=== PATIENT | male | born 1950 | race Caucasian/White ===

== ENCOUNTER 2019-06-10 15:50 | Inpatient (IN) | payer OTHER ==
[~2019-06-10] VITALS: Ht 172.7 cm; Wt 85.5 kg
--- NOTE | ~2019-06-10 | H ---
[facility] [place] [address] HISTORY AND PHYSICAL Name: JASON PEREZ Room #: 459-P ADM IN M.R.#: [id number] Admission: 06/10/19 Attend Phys: Susana Kraus MD Discharge: Date of : 54 Report #: [id number] THIS REPORT FOR: //name// CC: Guido Kraus DATE OF SERVICE: 06/10/2019 ADMISSION HISTORY AND PHYSICAL EXAMINATION PRIMARY CARE PHYSICIAN: Dr. Guido Rowan. EMERGENCY CONTACT: Mrs. Rosette Perez, . She is also a durable power of assistant county attorney for health in case the patient cannot make decision. CHIEF COMPLAINT: 1. Numbness and tingling of both lower extremities and now upper extremity, progressively worsening for last 2 weeks. 2. Shortness of breath, progressively worsening for last 3 days. 3. Loss of balance with both lower extremities, being extremely weak where the patient cannot get up yesterday and today. HISTORY OF PRESENT ILLNESS: The patient is a very pleasant 68-year-old gentleman with a history of 60+ pack year smoking as well as in remission for the last 16 years and also has daily cocktail use at bedtime. The patient has a very well controlled diabetes mellitus type 2 with A1c of 5.8 and the most recent labs and has peripheral neuropathy for several years and also chronic pancreatitis diagnosed in this hospital, which required ICU stay for 5 days. The patient informs me that he had been dealing with neuropathy and he has been on gabapentin; however, the neuropathy symptoms are not well controlled and therefore, he drinks a cocktail to bed, so he can sleep at night and the patient informs me that since he started having some intermittent nausea, which he thought was because of his pancreatitis flareup, but never had any emesis and nausea actually is only once every couple of days. The patient informs me that his peripheral neuropathy in feet progressed to the both lower extremities upwards and both hands started having numbness and tingling approximately 2 weeks ago and the patient informs me that this got so bad that he had to actually go and get a cane from the store about a week ago and he is unable to get up from the floor if he falls down. He has not had a fall, however, but his has been supporting him to be able to get up from the chair and to walk and to sustain balance. The patient has not had any associated fever, shaking chills or night sweats and has not had any fall or head trauma or back trauma in recent past. The patient informs me that he has had colonoscopy 4 years ago and he had 1 polyp and he was told to have repeat one in 5-7 years. The patient denies any focal weakness or focal numbness. It is basically bilaterally symmetrical both lower extremities and then started [address] [address] HISTORY AND PHYSICAL Name: JASON PEREZ Room #: 459-P ADM IN M.R.#: [id number] Admission: 06/10/19 Attend Phys: Susana Kraus MD Discharge: Date of : 54 Report #: [id number] with both upper extremities and then about 3 days ago, he started noticing dyspnea on exertion, which is a new phenomenon for him. He denies any associated chest pain, diaphoresis, palpitations. He also has not had any orthopnea, paroxysmal nocturnal dyspnea or leg edema. The dyspnea on exertion is only with walking; however, even though he has not been able to walk much, but any exertion makes him short of breath and for last 1 to 2 days, he had not been able to balance himself and he cannot get up and walk because of lack of balance. The patient denies any associated dysuria, hematuria, frequency or urgency of urination. He also denies any hematochezia and melena and denies any exposure to infection. The patient has had flu vaccine in February and shingles vaccine in March and has not had any problems after those vaccinations in February, March, April. These all symptoms started in past 2-3 weeks approximately. PAST MEDICAL HISTORY: Significant for: 1. Hypertension. 2. Diabetes mellitus type 2. 3. Hyperlipidemia. 4. Diarrhea associated with metformin. 5. Key's esophagus. 6. Peripheral neuropathy. 7. Chronic pancreatitis. 8. One colonic polyp 4 years ago, diagnosed, noncancerous. PAST SURGICAL HISTORY: The patient has had Dupuytren contracture surgery in the right hand as well as in the left hand and no other surgeries noted. FAMILY HISTORY: The patient's mother at the age of 65 with cirrhosis of liver and father at the age of 50 years with metastatic lung cancer to brain and he was a heavy smoker. CURRENT MEDICATIONS: 1. Metoprolol. 2. Metformin. 3. Cholestyramine for diarrhea associated with metformin. 4. Lipitor. 5. Gabapentin. 6. Pantoprazole. ALLERGIES: THE PATIENT IS ALLERGIC TO IBUPROFEN AND HE HAS NO OTHER DRUG ALLERGIES. SOCIAL HISTORY: He smoked 1.5-2 packs per day up until he was 52 years of age from the 22 years who has approximately 22-tlum-cyfv smoking history, but quit 16 years ago and alcohol consumption almost every night. He drinks a cocktail of flavored vodka as neuropathy symptoms are difficult to control and alcohol [address] [place] [address] HISTORY AND PHYSICAL Name: JASON PEREZ Room #: 459- ADM IN M.R.#: [id number] Admission: 06/10/19 Attend Phys: Susana Kraus MD Discharge: Date of : 54 Report #: [id number] helps him go to sleep as he informs me. Denies any alcohol withdrawal seizures, but he does drink every night. FAMILY HISTORY: Mother of cirrhosis of liver at 65 years and father at the age of 50 years with metastatic lung cancer. REVIEW OF SYSTEMS: Ten point review of system was done and was completely negative for fever, shaking chills, night sweats, nausea, vomiting, diarrhea. The patient did have intermittent nausea, but the last episode was 3 or 4 days ago and absolutely no emesis. The patient denies any dysuria, hematuria, frequency or urgency of urination. Denies any hematochezia, melena. Denies any focal weakness or denies any blurred vision or difficulty with any sore throat, sinus drainage. He does have chronic sinus issues, but has denied any exacerbation recently. The patient informs me that he has not had any vertigo or dizziness and denies any chest pain, palpitations, orthopnea and denies any fall or injury to the lower back or any part of the back or any head trauma. PHYSICAL EXAMINATION: VITAL SIGNS: The patient has a temperature of 36.9, heart rate 73, respirations 20, blood pressure 161/94, pulse oximeter 90%. When he initially presented at the time of examination, the patient has a heart rate of 86, respirations 16, blood pressure 145/89, pulse oximeter 94% on room air. GENERAL: Alert and oriented to time, place and person, very pleasant 68-year-old gentleman with mild anxiety and distress about his progressively worsening weakness, but no cardiopulmonary distress. HEENT: Normocephalic, atraumatic. Pupils equally round, reactive to light. Extraocular muscle movements are intact. Oropharynx is clear. Mucous membranes are moist. Tongue coated, but no thrush noted. No buccal mucosal lesions noted. NECK: Supple, no JVD, no lymphadenopathy, no thyromegaly. HEART: S1, S2, regular. No murmur, no S3, no S4. LUNGS: Clear to auscultation without any crackles or wheezes. ABDOMEN: Soft, nontender, nondistended, normal active bowel sounds. No spinal tenderness or CVA tenderness elicited. EXTREMITIES: No edema both lower extremities. NEUROLOGICAL: The patient has good hand mold clamper bilaterally symmetrical and is able to lift both lower extremities at hip against gravity; however, it was not tested against resistance for flexors of the hip or extensors. The patient has a nonfocal neurological exam and skin exam without any breakdown. The patient does have seborrheic dermatitis of the head and neck area, but no skin breakdown noted. LABS AND X-RAYS: The patient had a sed rate of 13. Magnesium is low at 1.3. Creatine kinase is 56. CRP is normal at 7.1. Lipase is normal at 60. TSH normal 2.620. Free T4 is normal at 1.0. The patient has no leukocytosis with WBC 8.0 and hemoglobin 16.2, hematocrit 47.5. The patient has macrocytosis with [facility] [address] [place] [address] HISTORY AND PHYSICAL Name: JASON PEREZ Room #: 459-P ADM IN M.R.#: [id number] Admission: 06/10/19 Attend Phys: Susana Kraus MD Discharge: Date of : 54 Report #: [id number] MCV of 103.5. The patient had RDW normal, platelet count normal at 214 and segmented neutrophils are mildly elevated at 72.6%. No bandemia noted. D-dimer is normal at 0.34. The chemistries indicate sodium 142, potassium low at 3.1, chloride 98, bicarbonate 27. Anion gap normal for our lab is 16, the patient has 17. BUN 9, creatinine 0.9. Estimated GFR 84, glucose is 165, calcium is 9.7, total bilirubin 0.7, AST is mildly elevated at 87, ALT 54, alkaline phosphatase 98. Troponin I less than 0.06. BNP 53. Total protein 8.2, albumin 3.9, so protein-albumin ratio is normal. Influenza A and B are negative. Urinalysis indicates trace ketones, but otherwise unremarkable with a specific gravity 1.025, mildly elevated. Electrocardiogram indicates a left anterior fascicular block and poor R-wave progression and probable LVH, but no previous EKG available for comparison. A CT scan of the head indicates no midline shift, no CT evidence of acute infarction, extensive right maxillary sinusitis noted, but otherwise it was unremarkable. Chest x-ray is unremarkable without any cardiomegaly and the lung shadows are clear. ASSESSMENT: 1. Progressively worsening bilateral lower and upper extremity weakness. 2. Frequent falls. 3. Vitamin B12 deficiency with the level 200 in 05/2018, which has been replaced now. 4. Peripheral neuropathy, progressively worsening. 5. Type 2 diabetes mellitus, very tightly controlled with A1c of 5.8. 6. Dyspnea on exertion for last 3 days. 7. Daily alcohol use. 8. Severe hypomagnesemia and hypokalemia. 9. Hypertension, reasonably well controlled; hyperlipidemia, well controlled. We will go ahead and the patient has brought his labs from the clinic and lipids and TSH and B12 and hemoglobin A1c all within normal limit and the patient is full code. DVT prophylaxis with heparin and GI prophylaxis with Pepcid. PLAN: 1. The patient will be continued on sliding scale insulin and we will give gentle IV fluid as the patient has had decreased p.o. intake and we will start a diabetic diet. Since the patient takes alcohol every day, we will go ahead and put CIWA protocol and physical therapy, occupational therapy consult has been entered. We will go ahead and consult Neurology and we will do peak flow assessment initial as well as monitoring q. shift. If there is any decline in peak flow, then we will transfer the patient to ICU. There is no sensory loss. It does not appear to be Guillain-Purdum polyneuropathy. However, the patient's weakness has progressed in last 2-3 weeks very rather rapidly and the patient has significant balance problems, so likely polyneuropathy is contributing to [facility] [address] [place] [address] HISTORY AND PHYSICAL Name: JASON PEREZ Room #: 459-P [facility] IN ..#: [id number] Admission: 06/10/19 Attend Phys: Susana Kraus MD Discharge: Date of : 54 Report #: [id number]. However, MRI of the brain will be able to tell us about cerebellar lesion. Discussed with the patient and his the plan of care. 2. For dyspnea on exertion, we will go ahead and get an echocardiogram. The patient is a high risk for any alcoholic cardiomyopathy as well as anything related to diabetes and hypertension, especially with the EKG being left anterior fascicular block. We will go ahead and check ejection fraction and troponin has been negative and the patient does not have any chest pain. We will go ahead and get echo and if echo is abnormal, then we will consult Cardiology. 3. For diabetes, we will hold metformin and cholestyramine, which is being given to the patient for diarrhea and we will use sliding scale insulin, low dose. 4. Plan of care was discussed with the patient in detail and we will use continuous pulse oximetry if the patient has any symptoms of dyspnea. 5. There could be likely underlying COPD, so we will go ahead and do DuoNeb breathing treatment with distant breath sounds. 6. For maxillary sinusitis with extensive disease in the right maxillary sinus, we will go ahead and give ceftriaxone empirically for next 3 days and then switch to cefuroxime or azithromycin and a plan of care was discussed with the patient in detail. By: 17 20 Susana Kraus MD /ritu
[2019-06-10 15:52] VITALS: BP 161/94
[2019-06-10 16:32] LABS: URINE BILIRUBIN NEGATIVE (Negative); URINE BLOOD NEGATIVE (Negative); URINE CLARITY CLEAR; URINE COLOR YELLOW; URINE GLUCOSE-RANDOM* NEGATIVE (Negative); URINE KETONES TRACE (Negative); URINE LEUKOCYTES-REFLEX NEGATIVE (Negative); URINE NITRITE-REFLEX NEGATIVE (Negative); URINE PROTEIN (DIPSTICK) NEGATIVE (Negative); URINE SPECIFIC GRAVITY 1.025 (1.005-1.035); URINE UROBILINOGEN 0.2 E.U./dl (0.2-1.0)
[2019-06-10 16:57] LABS: ABSOLUTE NEUTROPHILS 5.8 thou/uL (1.4-8.2); BASOPHILS 1.4 % (0.0-2.0); EOSINOPHILS 3.3 % (0.0-3.0); HEMATOCRIT 47.5 % (42.0-52.0); HEMOGLOBIN 16.2 gm/dL (14.0-18.0); LYMPHOCYTES 18.4 % (24.0-44.0); MCH 35.2 pg (26.0-34.0); MCHC 34.1 g/dL (28.0-37.0); MCV 103.4 fL (80.0-100.0); MONOCYTES 4.3 % (1.0-8.0); PLATELET COUNT 214 thou/uL (150-400); POLYS 72.6 % (36.0-66.0); RBC 4.59 mil/uL (4.50-6.00); RDW 12.7 % (10.5-14.5)
[2019-06-10 17:02] LABS: ANION GAP 17 mmol/L (7-16); BUN 9 mg/dL (7-18); CALCIUM 9.7 mg/dL (8.5-10.1); CHLORIDE 98 mmol/L (98-107); CO2 27 mmol/L (21-32); CREATININE 0.9 mg/dL (0.7-1.3); GLUCOSE 165 mg/dL (74-106); POTASSIUM 3.1 mmol/L (3.5-5.1); SODIUM 142 mmol/L (136-145)
[2019-06-10 17:15] LABS: ALBUMIN 3.9 g/dL (3.4-5.0); SGOT 87 U/L (15-37); SGPT 54 U/L (30-65); TOTAL BILIRUBIN 0.7 mg/dL (<0.1-1.0); TOTAL PROTEIN 8.2 g/dL (6.4-8.2); TROPONIN-I <0.06 ng/mL (<0.06)
[2019-06-10 17:19] LABS: MAGNESIUM 1.3 mg/dL (1.8-2.4)
[2019-06-10] MEDS ORDERED: METFORMIN HCL500 M3 PO (19:08)
[2019-06-10] MEDS ORDERED: TOPROL XL25 MG PO (19:08)
[2019-06-10] MEDS ORDERED: LIPITOR 10 MG10 M1 PO (19:09)
[2019-06-10] MEDS ORDERED: PANTOPRAZOLE SO20 MG PO (19:09)
[2019-06-10] MEDS ORDERED: VITAMIN B-121000 MC2 SUBLING (19:10)
[2019-06-10] MEDS ORDERED: QUESTRAN PACKET4 GM PO (19:10)
[2019-06-10] MEDS ORDERED: NEURONTIN100 MG PO (19:10)
[2019-06-10 19:53] VITALS: BP 146/95
[2019-06-10 20:05] VITALS: BP 146/95
[2019-06-10 20:17] LABS: MAGNESIUM 1.4 mg/dL (1.8-2.4); PHOSPHORUS 3.8 mg/dL (2.5-4.9)
[2019-06-10 20:34] VITALS: BP 153/97
[2019-06-10 20:35] VITALS: BP 153/97
[2019-06-10 21:18] LABS: FOLIC ACID 86.2 ng/mL (8.6-58.9)
--- NOTE | 2019-06-11 03:27 | NUR ---
ADMITTED FROM ER UNDER 'S CARE. AXOX4. VSS. BLOOD GLUCOSE MONITORING. ADMITTED WITH PROGERSSTIVE BLE WEAKNESS. CIWA AND NEUROLOGICAL CHECKS PER MD ORDER. PT CALM AMD COOERATIVE AND FOLLOWS DIRECTIONS VERY WELL. NO S/S ACUTE DISTRESS NOTED OR REPORTED AT THIS TIME. WILL CONT TO MONITOR FOR ANY CHANGES IN CONDITION.
[2019-06-11 04:45] VITALS: BP 151/85
[2019-06-11 08:02] VITALS: BP 132/84
--- NOTE | 2019-06-11 12:02 | 2DMMODE ---
[facility] [address] [place] [address] 2 D/M-MODE ECHOCARDIOGRAM Name: RICHARDSJASON Room #: 459-P ADM IN M.R.#: [id number] Admission: 06/10/19 Attend Phys: Susana Kraus, Discharge: Date of : 54 Report #: [id number] THIS REPORT FOR: //name// APPROVED REPORT Study performed: 06/11/2019 10:55:56 EXAM: Comprehensive 2D, Doppler, and color-flow Echocardiogram Patient Location: Echo lab Room #: [facility] Status: routine BSA: 1.97 HR: 82 bpm BP: 132/84 mmHg Rhythm: NSR Other Information Study Quality: Good Indications Diabetes Dyspnea 2D Dimensions IVSd: 9.66 (7-11mm) LVOT Diam: 22.38 (18-24mm) LVDd: 58.89 mm PWd: 10.94 (7-11mm) Ascending Ao: 28.07 (22-36mm) LVDs: 45.53 (25-40mm) Aortic Root: 29.13 mm IVC: 18.00 mm Volumes Left Atrial Volume (Systole) Single Plane 4CH: 52.18 mL Single Plane 2CH: 31.66 mL LA ESV Index: 24.00 mL/m2 Aortic Valve AoV Peak Homero.: 1.25 m/s AO Peak Gr.: 6.24 mmHg LVOT Max P.23 mmHg LVOT Max V: 1.03 m/s JUAN Vmax: 3.24 cm2 Mitral Valve E/A Ratio: 0.8 MV Decel. Time: 397.61 ms MV E Max Homero.: 0.48 m/s [facility] [address] [place] [address] 2 D/M-MODE ECHOCARDIOGRAM Name: JASON RICHARDS Room #: 459-P [facility].#: [id number] Admission: 06/10/19 Attend Phys: Susana Kraus, Discharge: Date of : 54 Report #: [id number] MV A Homero.: 0.64 m/s MV PHT: 115.31 ms IVRT: 129.18 ms Pulmonary Valve PV Peak Homero.: 1.25 m/s PV Peak Gr.: 6.21 mmHg Pulmonary Vein P Vein S: 0.57 m/s P Vein A: 0.24 m/s P Vein D: 0.52 m/s P Vein A Dur.: 110.7 msec P Vein S/D Ratio: 1.10 Left Ventricle Left ventricle is at the upper limits of normal. There is normal LV segmental wall motion. There is normal left ventricular wall thickness. Left ventricular systolic function is normal. The left ventricular ejection fraction is within the normal range. LVEF is 50-55%. Grade I - abnormal relaxation pattern. Right Ventricle The right ventricle is normal size. The right ventricular systolic function is normal. Atria The left atrium size is normal. The right atrium size is normal. Aortic Valve The aortic valve is normal in structure. No aortic regurgitation is present. There is no aortic valvular stenosis. Mitral Valve The mitral valve is normal in structure. There is no mitral valve regurgitation noted. No evidence of mitral valve stenosis. Tricuspid Valve The tricuspid valve is normal in structure. There is no tricuspid valve regurgitation noted. Pulmonic Valve The pulmonary valve is normal in structure. There is no pulmonic valvular regurgitation. Great Vessels The aortic root is normal in size. IVC is normal in size and collapses >50% with inspiration. [facility] [address] [place] [address] 2 D/M-MODE ECHOCARDIOGRAM Name: JASON RICHARDS Room #: 459[facility] IN .R.#: [id number] Admission: 06/10/19 Attend Phys: Susana Kraus, Discharge: Date of : 54 Report #: [id number] Pericardium There is no pericardial effusion. <Conclusion> Left ventricle is at the upper limits of normal. LVEF is 50-55%. The aortic valve is normal in structure. The mitral valve is normal in structure. The tricuspid valve is normal in structure. The pulmonary valve is normal in structure. There is no pericardial effusion. <ELECTRONICALLY SIGNED> By: Samir Ba MD 06/11/191201 01 01 Samir Ba MD /INF
--- NOTE | 2019-06-11 13:22 | NUR ---
PT ADMITTED RELATED TO BLE WEAKNESS. CM REVIEWED CHART AND SPOKE WITH CARE TEAM. CM MET WITH PT AT BEDSIDE THIS DAY. PT IS A&O X4. CM ROLE INTRODUCED. PT INDICATED HE LIVES IN A HOUSE WITH HIS SPOUSE WITH 5 STEPS TO ENTER AND ALL NEEDS ON 1 LEVEL UPON ENTRY. PT INDICATED HE HAD USED A CANE TO ASSIST WITH BALANCE BUT HAD BEEN INDEPDENDENT WT ADLS STERILIZER MACHINE OPERATOR. PT INDICATED NO HH OR OP HX. PT INDICATED HE HOPES TO BE ABLE TO RETURN HOME ONCE MEDICALLY STABLE. CM TO FOLLOW INDICATED WITH DC PLANNING.
--- NOTE | 2019-06-11 15:02 | EKG ---
[address] [address] ELECTROCARDIOGRAM REPORT Name: JASON RICHARDS Room #: 459-P ADM IN M.R.#: [id number] Admission: 06/10/19 Attend Phys: Susana Kraus MD Discharge: Date of : 54 Report #: [id number] THIS REPORT FOR: //name// [facility] ED Test Date: 2019-06-10 Test Time: 16:11:07 Pat Name: JASON RICHARDS Department: Room: 45 Gender: M Country Manager: RALF : 1950 Requested By: Peyton Borja Order Number: [id number] MD: Hung Lilly Measurements Intervals [place] Rate: 84 P: 27 VT: 162 QRS: -52 QRSD: 103 T: 43 QT: 380 QTc: 450 Interpretive Statements Sinus rhythm Left anterior fascicular block Abnormal R-wave progression, late transition Probable left ventricular hypertrophy No previous ECG available for comparison Electronically Signed On 06-11-2019 15:02:01 GARBAGE DEPOT WORKER by Hung Lilly [email or web address] <ELECTRONICALLY SIGNED> By: Hung Lilly MD 06/11/19 1502 161 161 Hung Lilly MD /EPI
[2019-06-11 16:06] LABS: APTT 27.5 Seconds (24.5-32.8); PROTIME 10.5 Seconds (9.3-11.4)
[2019-06-11 16:59] VITALS: BP 137/82
[2019-06-11 19:19] VITALS: BP 118/68
--- NOTE | 2019-06-11 19:39 | NUR ---
Assumed pt care this am, echo done this am. Pt is able to void with no issues, fall precautions in place pt is not stable on his feet. PT and OT came to work with the pt today. Tolerating diet and medications. Seen by Dr. Gautam, coodinated lumbar tap, to be scheduled as per radiology on Friday though Dr. Gautam wanted this done kiana. HEparin on hold 24 hours prior to lumbar tap on Friday. Updated med req from the list the of the pt has providec, informed Dr. Kraus. CIWA completed has been scoring a 2. POC followed no signs or verbalizations of distress have been noted. Endorsed tot he night nurse.
[2019-06-11 20:06] LABS: IgA 300 mg/dL (61-437); IgG 1051 mg/dL (700-1600); IgM 101 mg/dL (20-172)
[2019-06-12 03:41] VITALS: BP 133/74
[2019-06-12 06:09] LABS: CALCIUM 8.5 mg/dL (8.5-10.1); CREATININE 0.6 mg/dL (0.7-1.3); MAGNESIUM 1.8 mg/dL (1.8-2.4); PHOSPHORUS 3.7 mg/dL (2.5-4.9)
[2019-06-12 06:12] LABS: POTASSIUM 2.7 mmol/L (3.5-5.1)
--- NOTE | 2019-06-12 07:15 | NUR ---
ASSUMED CARE AROUND 191. AXOX4. FALL PRECAUTIONS IN PLACE. CRITICAL K+ THIS AM. ELECTROLYTE PROTOCOL PLCAED PER ALICIA MOSQUEDA SPRAY BOOTH OPERATOR FOR . NEXT DOSE AND SCHEDULED LAB DRAW ENDORSED TO RODOLFO WEBBER. NO S/S ACUTE DISTRESS NOTED OR REPORTED AT THIS TIME. CARE TRANSFERRED TO RODOLFO WEBBER AT THIS TIME.
[2019-06-12 08:00] VITALS: BP 160/85
[2019-06-12 15:00] VITALS: BP 134/94
[2019-06-12 20:12] VITALS: BP 135/76
--- NOTE | 2019-06-13 05:57 | NUR ---
Assessments completed. pt a&ox4. pt is a little forgetful. ambulates with 1 aassist with a walker to the bathroom. pt also uses the urinal. pt was flushed last night and this morning pt woke up with a facial rash. there was no other symptoms seen or reported by pt. rash is not itching. pt is only allergic to ibuprufen and it was not given. OVERHEAD CRANE TECHNICIAN Lani called and she ordered a 1x dose of benedryl 25mg which was administered. pt is getting Neb tx QID and he last recieved it at around 1900 per emar. no s/s of distress. will cont to monitor closely for any changes
[2019-06-13 08:16] LABS: URINE BILIRUBIN NEGATIVE (Negative); URINE BLOOD NEGATIVE (Negative); URINE CLARITY CLEAR; URINE COLOR YELLOW; URINE GLUCOSE-RANDOM* NEGATIVE (Negative); URINE KETONES NEGATIVE (Negative); URINE LEUKOCYTES NEGATIVE (Negative); URINE NITRITE NEGATIVE (Negative); URINE PROTEIN (DIPSTICK) NEGATIVE (Negative); URINE UROBILINOGEN 0.2 E.U./dl (0.2-1.0)
[2019-06-13 08:24] LABS: AMP/METHAMP Negative (Negative); BARBITURATES Negative (Negative); BENZODIAZEPINES Negative (Negative); COCAINE Negative (Negative); METHADONE Negative (Negative); OPIATES Negative (Negative); PCP Negative (Negative)
[2019-06-13 09:13] VITALS: BP 131/81
[2019-06-13 15:10] VITALS: BP 140/88
[2019-06-13 19:28] VITALS: BP 141/94
--- NOTE | 2019-06-13 19:29 | NUR ---
ASSUMED CARE AROUND 0715. AXOX4. CALLS APPROPRIATELY FOR ASSISTANCE. CONSTIPATION AND BP MEDS INQUIRED TO MD LUDMILA WILL REVIEW. DISCUSSED PLAN FOR LP AND US ABDOMEN IN AM. NO S/S ACUTE DISTRESS NOTED OR REPORTED AT THIS TIME. CARE TRANSFERRED TO INCOMING RN AT THIS TIME.
--- NOTE | 2019-06-14 01:30 | NUR ---
PT IS A/O X4 .PT CARE ASSUMED WITH PT IN BED WATCHING IT.PT IS UP WITH SBA TO THE BATHROOM USING A WALKER AND USES A URINAL AT NIGHT.PT IS ACHS ACCUCHECK.PT NPO FROM MIDNIGHT FOR LP AND ULTRASOUND.PT WILL NEED MED FOR ANXIETY BEFORE LUMBAR PUNCTURE.PT WILL ALSO NEED A BOWEL REGIMEN .WILL CONTINUE POC TILL EOS
[2019-06-14 09:01] VITALS: BP 137/88
[2019-06-14 12:09] LABS: ANA INTERPRETATION Negative (Negative)
[2019-06-14 13:22] VITALS: BP 137/88
[2019-06-14 13:53] LABS: CSF CLARITY CLEAR; CSF COLOR COLORLESS; CSF RBC 51 /mm3; CSF WBC 3 /mm3 (0-10); VOLUME 11 ml
[2019-06-14 14:24] LABS: CSF GLUCOSE 76 mg/dL (40-70); CSF PROTEIN 71 mg/dL (15-45)
--- NOTE | 2019-06-14 14:51 | NUR ---
PHYSICIAN INDICATED THAT PT IS MEDICALLY STABLE TO DC HOME WITH HOME HEALTH THIS DAY. PT NOTES FROM 06/12 HAD INDICATED PT WOULD BENEFIT FROM POST ACUTE CARE STAY. CM HAD ORDERED FWW THROUGH [facility] INDICATED PT HAD USED ONE. CM NET WITH PT AT BEDSIDE THIS DAY PT INDICATED THAT HE WAS VERY DISATISFIED WITH THE WAY HIS DISCHARGE WAS HANDLED. HE INIDCATED THAT HE DIDN'T KNOW THIS DR. ALMONTE AND THAT THIS ISN'T HOUSE DR. SMITH WOULD HAVE HANDLED ANYTHING. CM APPOLOGIZED BUT INDICATED THAT PHYSICIAN INDICATED THAT PT COULD GO SKILLED IF PT WAS CONCERNED ABOUT DCING HOME. CM INDICATED THAT CM BROUGHT A LIST OF IN NETWORK SKILLED REHAB FACILITIES AND THAT PT LIKELY WOULDN'T DC FOR ANOTHER 24-48HRS BECAUSE WE WOULD NEED INSURANCE AUTH. PT STATED HE WOULDN'T GO TO A FACILITY. CM INDICATED THAT PHYSICIAN HAD ORDERED PT, OT, AND NURSING HH SERVICES AND CM ASKED IF PT HAD PREFERRENCE IN WHAT COMPANY REFERRAL WAS SENT TO FOR SERVICES. PT INDICATED THERE WOULD LIKELY BE SOME COST SO HE DIDN'T WANT HH EITHER. CM INDICATED THAT CM COULD ORDER PT A FWW THROUGH HIS INSURANCE FOR HOME USE BUT PT INDICATED HE SON LEFT TO GO BUY HIM ONE ALREADY. PT INIDCATED HE JUST GOT BACK FROM LP AND THAT HE FELT LIKE HIS DISCHARGE IS TOO RUSHED. CM INDICATED THAT CM WOULD NOTIFY PATIENT EXPERIENCE COORDINATOR. CM CALLED AND NOTIFIED ANALI. HE IS TO MEET WITH PT. CM NOTIFIED PHYSICIAN WELL. CM ABLE TO FOLLOW UP TO ASSIST INDICATED. OF OUR VISIT PT WAS REFUSING POST ACUTE CARE STAY, HH, AND FWW. CM TO FOLLOW INDICATED WITH DC PLANNING.
[2019-06-14 16:09] LABS: GLOBULIN TOTAL 2.7 g/dL (2.2-3.9); M-SPIKE Not Observed g/dL (Not Observed)
[2019-06-14 16:09] LABS: HEP B SURFACE Ab(ANTI-HBS Non Reactive (()); HEPATITIS B SURFACE AG Negative (Negative); HEPATITIS C VIRUS AB <0.1 (0.0-0.9)
[2019-06-14 16:09] LABS: HIV ANTIBODY Non Reactive (Non Reactive)
--- NOTE | 2019-06-14 16:32 | NUR ---
Assumed patient care at 0715. Vitals signs stable, he denies pain. Patient went for testing in am for progressive weakness in BLE. Results pending. Received Discharge Orders for patient. Son at bedside to hear this news. [place] son and patient angry due to Discharge. Salvage Inspector [employer], this nurse and Patient Advocate discussed this with patient and son, giving them the option to have Home Health or go to a Skilled Facility. Patient declined, stating "that is not an option!" Patient signed Discharge Paperwork, left with new walker that had been ordered for him, clothing, cell phone and other personal belongings at 1540.
[2019-06-15 19:06] LABS: SYPHILIS AB Non Reactive (Non Reactive)
[2019-06-17 13:12] LABS: CSF IgG 5.2 mg/dL (0.0-8.6)
[2019-06-17 14:07] LABS: CSF VDRL Non Reactive (Non Rea:<1:1)
== END 2019-06-14 17:12 | disposition home health service (06) | DRG 74 ==
LOC: ER 15:50 → 4W 18:28 → EROBS 18:28 → 4W 20:08 → ENTRNSPT 06-14 15:33 → EDTRNSPTSTS 06-14 15:37 → 4W 06-14 17:12
PROVIDERS: Emergency Medicine; Physician Assistant; Psychiatry & Neurology Neurology; ADMIT Internal Medicine
PROC: 009U3ZX Drainage of Spinal Canal, Percutaneous Approach, Diagnostic (ICD-10-PCS; principal; 2019-06-14)
PROC: B01B1ZZ Fluoroscopy of Spinal Cord using Low Osmolar Contrast (ICD-10-PCS; principal; 2019-06-14)
DX: E11.42 Type 2 diabetes mellitus with diabetic polyneuropathy (principal); G61.0 Guillain-Barre syndrome; E83.42 Hypomagnesemia; I10 Essential (primary) hypertension; E78.5 Hyperlipidemia, unspecified; E53.8 Deficiency of other specified B group vitamins; E87.6 Hypokalemia; Z86.010 Personal history of colon polyps; Z79.899 Other long term (current) drug therapy
CPT/HCPCS: 10040; 10045

== ENCOUNTER → 2019-07-14 | Outpatient (CLI) | payer OTHER ==
[~2019-07-14] MED LIST: LIPITOR 10 MG10 M1 PO; METFORMIN HCL500 M3 PO; NEURONTIN100 MG PO; PANTOPRAZOLE SO20 MG PO; QUESTRAN PACKET4 GM PO; TOPROL XL25 MG PO; VITAMIN B-121000 MC2 SUBLING
[2019-07-14 09:49] LABS: BUN 16 mg/dL (7-18); CREATININE 0.7 mg/dL (0.7-1.3)
[2019-07-14 10:30] LABS: ALBUMIN 4.2 g/dL (3.4-5.0); ANION GAP 14 mmol/L (7-16); CALCIUM 9.9 mg/dL (8.5-10.1); CHLORIDE 104 mmol/L (98-107); CO2 25 mmol/L (21-32); GLUCOSE 129 mg/dL (74-106); POTASSIUM 3.9 mmol/L (3.5-5.1); SGOT 39 U/L (15-37); SGPT 50 U/L (30-65); SODIUM 143 mmol/L (136-145); TOTAL BILIRUBIN 0.8 mg/dL (<0.1-1.0); TOTAL PROTEIN 8.6 g/dL (6.4-8.2)
== END ==
LOC: MRI 07-09 13:58
PROVIDERS: Psychiatry & Neurology Neuromuscular Medicine
DX: M51.26 Other intervertebral disc displacement, lumbar region (principal); M51.44 Schmorl's nodes, thoracic region; M48.061 Spinal stenosis, lumbar region without neurogenic claudication; M25.78 Osteophyte, vertebrae; M12.88 Other specific arthropathies, not elsewhere classified, other specified site; M51.36 Other intervertebral disc degeneration, lumbar region; G62.9 Polyneuropathy, unspecified; G61.0 Guillain-Barre syndrome

== ENCOUNTER → 2019-07-19 | Outpatient (CLI) | payer OTHER ==
[~2019-07-19] MED LIST changes: +VITAMIN B-1100 M2 PO
[2019-07-19 11:45] VITALS: BP 145/98
--- NOTE | 2019-07-19 13:52 | NUR ---
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 ADMISSION HISTORY AND ASSESSMENT COMPLETED. MEDICATION RECONCILED. PATIENT STATED A FEW WEEKS AGO HE STARTED HAVING NEUROPATHY SPREAD TO HIS THIGHS, HANDS AND ARMS. PT HAD NEURPATHY IN FEET FOR SEVERAL YEARS. WITH THE NEUROPATHY RAPIDLY PROGRESSING THE DRIngris WANTED HIM TO TRY IVIG INFUSIONS. PREMEDICATED WITH TYLENOL AND BENADRYL. TITRATED IVIG SLOWLY WITH MAX RATE OF 180ML/HR AND TOLERATED WELL. NO ADVERSE REACTION NOTED. SALINE LOCKED IV AND SECURED WITH COBAN. INSTRUCTED PATIENT TO KEEP IV SITE DRY. TO RETURN TOMORROW FOR SECOND INFUSION. DISMISSED IN STABLE CONDITION.
== END ==
LOC: OPONC 09:15
DX: G61.0 Guillain-Barre syndrome (principal); G62.9 Polyneuropathy, unspecified; R26.9 Unspecified abnormalities of gait and mobility; R29.898 Other symptoms and signs involving the musculoskeletal system
CPT/HCPCS: 95000; 95001

== ENCOUNTER → 2019-07-20 | Outpatient (CLI) | payer OTHER ==
[2019-07-20 10:10] VITALS: BP 139/91
--- NOTE | 2019-07-20 12:56 | NUR ---
IN FOR 2ND OF 5 DAILY IVIG INFUSIONS. TOLERATED DAY #1 WELL WITH NO SIDE EFFECTS REPORTED. SALINE LOCK PATENT. TITRATED IVIG PER PROTOCOL WITH MAX RATE OF 160ML/HR AND TOLERATED WELL. SALINE LOCKED IV AND SECURED WITH COBAN. TO RETURN TOMORROW FOR 3RD INFUSION. DISMISSED IN STABLE CONDITION.
== END ==
LOC: OPONC 10:08
DX: G61.0 Guillain-Barre syndrome (principal); G62.9 Polyneuropathy, unspecified; R26.9 Unspecified abnormalities of gait and mobility; R29.898 Other symptoms and signs involving the musculoskeletal system
CPT/HCPCS: 95000; 95001

== ENCOUNTER → 2019-07-21 | Outpatient (CLI) | payer OTHER ==
[2019-07-21 09:40] VITALS: BP 139/99
[2019-07-21 10:00] VITALS: BP 140/94
[2019-07-21 11:40] VITALS: BP 142/94
--- NOTE | 2019-07-21 12:16 | NUR ---
PT RECIEVED DAY 3 OF IVIG 30GMS WITH NO ISSUES. PT'S BP WAS ELEVATED TODAY, IT WAS YESTERDAY AND HE STATES HE TAKES BP MEDS. TEMP WAS 99.3 INITIALLY BUT HE DENIES ANY ISSUES WITH INFUSION. TEMP AT COMPLETION OF IVIG WAS 98.1 AND AGAIN NO COMPLAINTS. PT ASKING APPROPRIATE QUESTIONS ABOUT INFUSION. PT TO BE HERE AGAIN 07/22/19 FOR HIS 4TH INFUSION.
== END ==
LOC: OPONC 08:35
DX: G61.0 Guillain-Barre syndrome (principal); G62.9 Polyneuropathy, unspecified; R26.9 Unspecified abnormalities of gait and mobility; R29.898 Other symptoms and signs involving the musculoskeletal system
CPT/HCPCS: 95000; 95001

== ENCOUNTER → 2019-07-22 | Outpatient (CLI) | payer OTHER ==
[2019-07-22 10:42] VITALS: BP 137/97
--- NOTE | 2019-07-22 12:26 | NUR ---
IN FOR DAY 4 OF 5 DAILY GAMUNEX C INFUSIONS. PATIENT DENIED ANY SIDE EFFECTS AND STATED HE FEELS LIKE HE IS GETTING A LITTLE MORE SENSATION BACK IN HIS ARMS AND THIGHS. SALINE LOCK PATENT. TITRATED GAMUNEX C PER PROTOCOL WITH MAX RATE OF 196ML/HR AND TOLERATED WELL. SALINE LOCKED IV AND SECURED WITH COBAN. TO RETURN TOMORROW FOR LAST INFUSION. DISMISSED IN STABLE CONDITION.
== END ==
LOC: OPONC 08:42
DX: G61.0 Guillain-Barre syndrome (principal); G62.9 Polyneuropathy, unspecified; R26.9 Unspecified abnormalities of gait and mobility; R29.898 Other symptoms and signs involving the musculoskeletal system
CPT/HCPCS: 95000; 95001

== ENCOUNTER → 2019-07-23 | Outpatient (CLI) | payer OTHER ==
[2019-07-23 09:24] VITALS: BP 129/90
--- NOTE | 2019-07-23 12:13 | NUR ---
IN FOR LAST IVIG INFUSION TODAY. STATED HE IS HAVING MORE FEELING IN HIS ARMS, HANDS, FINGERS, LEGS, FEET. STATED HIS SKIN IS TENDER TO TOUCH AND IS HAVING MORE PAIN IN HIS FEET WHEN WALKING BECAUSE HE IS FEELING MORE AND IS NOT USED TO IT. TITRATED IVIG PER PROTOCOL WITH MAX RATE OF 192ML/HR AND TOLERATED WELL. REMOVED IV AND SECURED WITH COBAN. PATIENT STATED HE WILL FOLLOW UP WITH HIS DR. TO SEE WHEN HE NEEDS TO BE SEEN AGAIN. DISMISSED IN STABLE CONDITION.
== END ==
LOC: OPONC 07:06
DX: G61.0 Guillain-Barre syndrome (principal); G62.9 Polyneuropathy, unspecified; R26.9 Unspecified abnormalities of gait and mobility; R29.898 Other symptoms and signs involving the musculoskeletal system
CPT/HCPCS: 95000; 95001

== ENCOUNTER → 2021-02-16 | Outpatient (CLI) | payer OTHER | LOC: SJCVCIMAG 08:37 | PROVIDERS: ATTEND Family Medicine | DX: I70.1 Atherosclerosis of renal artery (principal); I10 Essential (primary) hypertension; Z88.0 Allergy status to penicillin; Z88.6 Allergy status to analgesic agent; E11.9 Type 2 diabetes mellitus without complications; Z87.891 Personal history of nicotine dependence; F12.90 Cannabis use, unspecified, uncomplicated ==